=== PATIENT | male | born 1940 | race African-American/Black ===

== ENCOUNTER 2017-11-10 10:50 | Emergency (ER) | payer OTHER ==
[~2017-11-10] VITALS: Ht 180.3 cm; Wt 81.7 kg
[~2017-11-10 10:50] MED LIST: ADVIL100 M2 PO; GABAPENTIN100 MG PO; NORCO 10-325 T1 EACH; ONE DAILY MEN'1 EACH PO; PRINIVIL5 MG PO; ROBAXIN 750 MG750 MG
[2017-11-10 11:53] LABS: URINE BILIRUBIN NEGATIVE (Negative); URINE BLOOD NEGATIVE (Negative); URINE CLARITY CLEAR; URINE COLOR YELLOW; URINE GLUCOSE-RANDOM* NEGATIVE (Negative); URINE KETONES TRACE (Negative); URINE LEUKOCYTES-REFLEX NEGATIVE (Negative); URINE NITRITE-REFLEX NEGATIVE (Negative); URINE PROTEIN (DIPSTICK) NEGATIVE (Negative); URINE SPECIFIC GRAVITY >= 1.030 (1.005-1.035); URINE UROBILINOGEN 0.2 E.U./dl (0.2-1.0)
[2017-11-10] MEDS ORDERED: LIORESAL 10 MG10 MG PO (12:15)
[2017-11-10] MEDS ORDERED: HYDROCODONE-AP1 EAC6 PO (12:15)
[2017-11-10] MEDS ORDERED: MEDROLDOSEPACK PO (12:15)
[2017-11-10] MEDS ORDERED: SENNA8.6 MG PO (12:15)
== END 2017-11-10 12:30 | disposition home or self-care (01) ==
LOC: ER 10:50
PROVIDERS: Physician Assistant
DX: M54.30 Sciatica, unspecified side (principal); I10 Essential (primary) hypertension

== ENCOUNTER 2017-11-12 08:51 | Emergency (ER) | payer OTHER ==
[~2017-11-12] VITALS: Ht 180.3 cm; Wt 81.7 kg
[~2017-11-12 08:51] MED LIST changes: +HYDROCODONE-AP1 EAC6 PO; +LIORESAL 10 MG10 MG PO; +MEDROLDOSEPACK PO; +SENNA8.6 MG PO
[2017-11-12] MEDS ORDERED: MORPHINE SULFAT15 M3 PO (11:01)
[2017-11-12] MEDS ORDERED: PERCOCET 5-3251 EACH PO (11:11)
== END 2017-11-12 11:23 | disposition home or self-care (01) ==
LOC: ER 08:51
DX: M54.9 Dorsalgia, unspecified (principal); M25.552 Pain in left hip; I10 Essential (primary) hypertension; F17.210 Nicotine dependence, cigarettes, uncomplicated

== ENCOUNTER → 2017-12-03 | Outpatient (CLI) | payer OTHER ==
[~2017-12-03] MED LIST changes: +MORPHINE SULFAT15 M3 PO; +PERCOCET 5-3251 EACH PO
== END ==
LOC: RAD 14:25
DX: M79.662 Pain in left lower leg (principal); G89.4 Chronic pain syndrome; I10 Essential (primary) hypertension; J44.9 Chronic obstructive pulmonary disease, unspecified; Z89.612 Acquired absence of left leg above knee

== ENCOUNTER → 2018-07-01 | Outpatient (CLI) | payer OTHER | LOC: MRI 12:12 | DX: M47.26 Other spondylosis with radiculopathy, lumbar region (principal); M48.061 Spinal stenosis, lumbar region without neurogenic claudication; M51.37 Other intervertebral disc degeneration, lumbosacral region; M40.46 Postural lordosis, lumbar region ==

== ENCOUNTER → 2018-07-30 | Outpatient (CLI) | payer OTHER | LOC: RAD 13:54 | DX: M51.36 Other intervertebral disc degeneration, lumbar region (principal); M43.16 Spondylolisthesis, lumbar region; M48.061 Spinal stenosis, lumbar region without neurogenic claudication; M12.88 Other specific arthropathies, not elsewhere classified, other specified site; M51.26 Other intervertebral disc displacement, lumbar region ==

== ENCOUNTER 2018-08-17 14:24 | Emergency (ER) | payer OTHER ==
[~2018-08-17] VITALS: Ht 175.3 cm; Wt 63.5 kg
[2018-08-17] MEDS ORDERED: NORCO 5-325 TA1 EACH PO (15:30)
[2018-08-17] MEDS ORDERED: TYLENOL325 MG PO (15:31)
[2018-08-17 15:37] LABS: ABSOLUTE NEUTROPHILS 1.8 thou/uL (1.4-8.2); BASOPHILS 0.8 % (0.0-2.0); CALCIUM 8.9 mg/dL (8.5-10.1); CREATININE 0.7 mg/dL (0.7-1.3); EOSINOPHILS 1.6 % (0.0-3.0); HEMATOCRIT 30.1 % (42.0-52.0); HEMOGLOBIN 10.4 gm/dL (14.0-18.0); LYMPHOCYTES 40.2 % (24.0-44.0); MCH 36.1 pg (26.0-34.0); MCHC 34.5 g/dL (28.0-37.0); MCV 104.5 fL (80.0-100.0); MONOCYTES 6.5 % (1.0-8.0); PLATELET COUNT 277 thou/uL (150-400); POLYS 50.9 % (36.0-66.0); POTASSIUM 4.1 mmol/L (3.5-5.1); RBC 2.88 mil/uL (4.50-6.00); RDW 16.5 % (10.5-14.5); WBC 3.5 thou/uL (4.0-11.0)
[2018-08-17 15:50] LABS: APTT 25.2 Seconds (24.5-32.8); PROTIME 10.3 Seconds (9.3-11.4)
[2018-08-17 18:10] LABS: URINE BILIRUBIN NEGATIVE (Negative); URINE BLOOD 2+ (Negative); URINE CLARITY CLEAR; URINE COLOR YELLOW; URINE GLUCOSE-RANDOM* NEGATIVE (Negative); URINE KETONES NEGATIVE (Negative); URINE LEUKOCYTES-REFLEX NEGATIVE (Negative); URINE NITRITE-REFLEX NEGATIVE (Negative); URINE PROTEIN (DIPSTICK) NEGATIVE (Negative); URINE SPECIFIC GRAVITY 1.015 (1.005-1.035)
[2018-08-17 18:20] LABS: BACTERIA-REFLEX 1-9 Few /HPF (None Seen); CASTS None Seen /LPF (None Seen); CRYSTALS None Seen /LPF (None Seen); SQUAMOUS None Seen /LPF (0-3); URINE WBC-REFLEX 0-5 Rare /HPF (0-5)
[2018-08-17 18:40] VITALS: BP 112/68
== END 2018-08-17 18:40 | disposition home or self-care (01) ==
LOC: ER 14:24
PROVIDERS: Emergency Medicine
DX: R33.9 Retention of urine, unspecified (principal); R20.0 Anesthesia of skin

== ENCOUNTER 2018-11-03 05:30 | Day surgery (SDC) | payer OTHER ==
[~2018-11-03] VITALS: Ht 180.3 cm; Wt 63.5 kg
--- NOTE | ~2018-11-03 | O ---
[facility] [place] [address] OPERATIVE REPORT Name: BEATRICE STOCKTON Room #: [facility].#: [id number] Admission: 11/03/18 ������������������ Attend Phys: Sarabjit Wagner MD Discharge: 11/03/18 ������������������ Date of : 40 Report #: [id number] THIS REPORT FOR: //name// CC: Sarabjit Miranda MD DATE OF SERVICE: 11/03/2018 PREOPERATIVE DIAGNOSIS: Symptomatic right inguinal hernia. POSTOPERATIVE DIAGNOSIS: Right direct inguinal hernia. PROCEDURES PERFORMED: Laparoscopic preperitoneal repair of right inguinal hernia with large size 3DMax lightweight mesh. DESCRIPTION OF PROCEDURE: With the patient under general anesthesia, a Young catheter was placed, IV antibiotic was administered. The incision was made adjacent to the umbilicus on the right side. The incision is about 2 cm. The anterior rectus fascia was identified. This was incised transversely. The muscle was spread along the length of its fiber. The posterior sheath was then identified. The space between the posterior sheath and the muscle was dissected bluntly. This was used to create a properitoneal space inferior to the incision. A balloon trocar was placed through the space. The balloon was inflated. Under visualization, a 5 mm trocar was placed into the space. Using cautery and blunt dissection, the rest of the properitoneal space was opened up. The patient did have an obvious direct hernia defect. Dissection was carried out laterally. The peritoneal reflection was identified. The peritoneum was gradually teased off the cord structure. There was no indirect hernia sac. The rest of the lateral wall was opened up. Dissection was also carried across the midline. A large size 3DMax lightweight mesh was then placed through the balloon trocar site opened in the properitoneal space. This was seated in position to cover the direct defect, also the external ring. The mesh fit well. Mesh was then tacked laterally with SorbaFix to the fascia lateral to the inferior epigastric vessel and then tacked to Arcenio's ligament above pubic bone inferior medially and then superomedially to the rectus muscle. The CO2 was evacuated. Trocars removed. The fascia defect in the rectus sheath was closed with [id number] 0 Vicryl and then interrupted 0 Vicryl. Skin was irrigated. Skin was then closed with 5-0 PDS. I was able to do the complex surgery using the 11 mm trocar and then one additional 5 mm trocar. The skin was closed with 5-0 PDS. Steri-Strip, Band-Aids applied. The patient tolerated the procedure well. ��������������������������������������������� ���������������������������������������� By: ��������������������������������������������� 2136 Sarabjit Wagner MD /domenica
[~2018-11-03 05:30] MED LIST changes: +LISINOPRIL5 MG PO; +NORCO 5-325 TA1 EACH PO; +TYLENOL325 MG PO; +ZANTAC 150MG T150 MG PO
[2018-11-03 09:57] LABS: HEMATOCRIT 34.6 % (42.0-52.0); HEMOGLOBIN 11.9 gm/dL (14.0-18.0)
[2018-11-03 10:30] VITALS: BP 130/70
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
[2018-11-03 12:42] VITALS: BP 130/70
--- NOTE | 2018-11-04 07:48 | EKG ---
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[employer] : 1940 Requested By: Sarabjit Wagner Order Number: [id number] MD: Matthew Zee Measurements Intervals [place] Rate: 51 P: 15 NH: 147 QRS: -3 QRSD: 98 T: 42 QT: 462 QTc: 426 Interpretive Statements Sinus bradycardia Poor R wave progression Compared to ECG 03/29/2012 08:14:01 No significant changes Electronically Signed On 11-04-2018 7:48:31 CDT by Matthew Zee [email or web address] ��������������������������������������������� <ELECTRONICALLY SIGNED> ���������������������������������������� By: Matthew Zee MD, [facility] ��������������������������������������������� 11/04/18 0748 1003 1003 Matthew Zee MD, [facility] /EPI
== END 2018-11-03 13:50 | disposition home or self-care (01) ==
LOC: OR 05:30 → TBA 05:30 → OR 11:56
PROVIDERS: Surgery
DX: K40.90 Unilateral inguinal hernia, without obstruction or gangrene, not specified as recurrent (principal); I10 Essential (primary) hypertension; I25.2 Old myocardial infarction; K21.9 Gastro-esophageal reflux disease without esophagitis; F17.210 Nicotine dependence, cigarettes, uncomplicated; Z98.890 Other specified postprocedural states; Z79.891 Long term (current) use of opiate analgesic; Z82.49 Family history of ischemic heart disease and other diseases of the circulatory system; Z89.511 Acquired absence of right leg below knee; Z87.442 Personal history of urinary calculi
CPT/HCPCS: 50010; 50101; 50411; 50455; 50507; 50555; 50848; 53065; 53307; 56525; 56526; 62110; 62900; 70005

== ENCOUNTER 2020-11-11 14:05 | Emergency (ER) | payer OTHER ==
[~2020-11-11] VITALS: Ht 177.8 cm; Wt 68.0 kg
[2020-11-11 14:45] LABS: HEMATOCRIT 33.3 % (42.0-52.0); HEMOGLOBIN 11.3 gm/dL (14.0-18.0); MCH 35.3 pg (26.0-34.0); MCHC 33.8 g/dL (28.0-37.0); MCV 104.3 fL (80.0-100.0); PLATELET COUNT 209 thou/uL (150-400); RBC 3.19 mil/uL (4.50-6.00); RDW 23.3 % (10.5-14.5); WBC 2.8 thou/uL (4.0-11.0)
[2020-11-11 14:53] LABS: ANION GAP 10 mmol/L (7-16); BUN 8 mg/dL (7-18); CALCIUM 8.5 mg/dL (8.5-10.1); CHLORIDE 107 mmol/L (98-107); CO2 24 mmol/L (21-32); CREATININE 0.8 mg/dL (0.7-1.3); GLUCOSE 92 mg/dL (74-106); POTASSIUM 3.9 mmol/L (3.5-5.1); SODIUM 141 mmol/L (136-145)
[2020-11-11 15:01] LABS: ABSOLUTE NEUTROPHILS 1.8 thou/uL (1.4-8.2)
[2020-11-11 15:02] LABS: ANISOCYTOSIS 1+; PLATELET ESTIMATE NORMAL
[2020-11-11 15:03] LABS: ALBUMIN 3.8 g/dL (3.4-5.0); SGOT 24 U/L (15-37); SGPT 39 U/L (16-63); TOTAL BILIRUBIN 0.8 mg/dL (0.2-1.0); TOTAL PROTEIN 7.5 g/dL (6.4-8.2); TROPONIN-I <0.06 ng/mL (<0.06)
[2020-11-11] MEDS ORDERED: MELOXICAM15 MG PO (15:23)
[2020-11-11 15:39] VITALS: BP 148/67
--- NOTE | 2020-11-12 07:13 | EKG ---
[place] [address] [facility] [place] [address] ELECTROCARDIOGRAM REPORT Name: BEATRICE STOCKTON 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 : 1940 Requested By: Brian Bedolla Order Number: [id number] MD: Trey Barger Measurements Intervals [place] Rate: 60 P: 74 OK: 161 QRS: 11 QRSD: 98 T: 64 QT: 448 QTc: 448 Interpretive Statements Sinus rhythm Compared to ECG 11/03/2018 10:03:18 Sinus bradycardia no longer present Poor R-wave progression no longer present Electronically Signed On 11-12-2020 7:13:20 CDT by Trey Barger [email or web address] <ELECTRONICALLY SIGNED> By: Trey Barger MD, [facility] 11/12/20 0713 1410 1410 Trey Barger MD, [facility] /EPI
== END 2020-11-11 15:41 | disposition home or self-care (01) ==
LOC: ER 14:05
PROVIDERS: Emergency Medicine Emergency Medical Services
DX: M25.511 Pain in right shoulder (principal); R07.89 Other chest pain; I10 Essential (primary) hypertension; R06.02 Shortness of breath; K21.9 Gastro-esophageal reflux disease without esophagitis; F17.210 Nicotine dependence, cigarettes, uncomplicated; Z87.442 Personal history of urinary calculi

== ENCOUNTER 2020-11-13 15:23 | Emergency (ER) | payer OTHER ==
[~2020-11-13] VITALS: Ht 180.3 cm; Wt 68.0 kg
[~2020-11-13 15:23] MED LIST changes: +MELOXICAM15 MG PO
[2020-11-13] MEDS ORDERED: HYDROCODON-ACE1 EAC7 PO (16:41)
[2020-11-13 17:06] VITALS: BP 150/90
== END 2020-11-13 16:52 | disposition home or self-care (01) ==
LOC: ER 15:23
DX: M25.511 Pain in right shoulder (principal); R07.89 Other chest pain; R06.02 Shortness of breath; R05 Cough; R09.3 Abnormal sputum; I25.2 Old myocardial infarction; I10 Essential (primary) hypertension; F17.210 Nicotine dependence, cigarettes, uncomplicated; K21.9 Gastro-esophageal reflux disease without esophagitis; Z87.442 Personal history of urinary calculi; Z79.899 Other long term (current) drug therapy

== ENCOUNTER 2020-12-13 12:41 | Emergency (ER) | payer OTHER ==
[~2020-12-13] VITALS: Ht 180.3 cm; Wt 68.0 kg
[~2020-12-13 12:41] MED LIST changes: +HYDROCODON-ACE1 EAC7 PO
[2020-12-13 12:46] VITALS: BP 110/56
[2020-12-13] MEDS ORDERED: ULTRAM 50MG TAB50 MG PO (13:10)
[2020-12-13] MEDS ORDERED: MOBIC7.5 MG PO (13:10)
== END 2020-12-13 13:35 | disposition home or self-care (01) ==
LOC: ER 12:41
DX: M54.5 Low back pain (principal); M25.511 Pain in right shoulder; I10 Essential (primary) hypertension; K21.9 Gastro-esophageal reflux disease without esophagitis; F17.210 Nicotine dependence, cigarettes, uncomplicated; Z87.442 Personal history of urinary calculi; V49.9XXA Car occupant (driver) (passenger) injured in unspecified traffic accident, initial encounter; Y93.89 Activity, other specified; Y92.488 Other paved roadways as the place of occurrence of the external cause; Y99.8 Other external cause status

== ENCOUNTER → 2021-03-25 | Emergency (ER) | payer OTHER ==
[~2021-03-25] VITALS: Ht 180.3 cm; Wt 68.0 kg
[~2021-03-25] MED LIST changes: +MOBIC7.5 MG PO; +ULTRAM 50MG TAB50 MG PO
[2021-03-25 18:00] VITALS: BP 145/88
== END ==
LOC: ER 12:20
DX: S16.1XXA Strain of muscle, fascia and tendon at neck level, initial encounter (principal); S30.0XXA Contusion of lower back and pelvis, initial encounter; S09.90XA Unspecified injury of head, initial encounter; M54.50 Low back pain, unspecified; I25.2 Old myocardial infarction; I10 Essential (primary) hypertension; K21.9 Gastro-esophageal reflux disease without esophagitis; F17.210 Nicotine dependence, cigarettes, uncomplicated; Z87.442 Personal history of urinary calculi; Z79.899 Other long term (current) drug therapy; Z79.1 Long term (current) use of non-steroidal anti-inflammatories (NSAID); V49.9XXA Car occupant (driver) (passenger) injured in unspecified traffic accident, initial encounter; Y93.89 Activity, other specified; Y92.89 Other specified places as the place of occurrence of the external cause; Y99.8 Other external cause status